=== PATIENT | male | born 1960 | race Two or more races ===

== ENCOUNTER 2024-02-17 13:35 | Emergency (ER) | payer OTHER ==
[~2024-02-17] VITALS: Ht 170.2 cm; Wt 96.2 kg
[2024-02-17] MEDS ORDERED: XANAX2 MG PO (13:49)
[2024-02-17] MEDS ORDERED: WELLBUTRIN SR100 MG PO (13:50)
[2024-02-17] MEDS ORDERED: IRBESARTAN75 MG PO (13:50)
[2024-02-17] MEDS ORDERED: XARELTO10 MG PO (13:50)
[2024-02-17] MEDS ORDERED: ZYLOPRIM100 M1 PO (13:50)
[2024-02-17] MEDS ORDERED: LIPITOR40 M1 PO (13:50)
[2024-02-17] MEDS ORDERED: TOPROL XL50 M1 (13:50)
[2024-02-17] MEDS ORDERED: CARVEDILOL12.5 MG (13:51)
[2024-02-17] MEDS ORDERED: NASAL MIST126 ML (13:51)
[2024-02-17] MEDS ORDERED: KETOROLAC TROMETHAMINE 30 MG VIAL IM STA (15:17)
== END 2024-02-17 16:28 | disposition home or self-care (01) ==
LOC: ER 13:36
DX: Z86.718 Personal history of other venous thrombosis and embolism (principal); M79.606 Pain in leg, unspecified; Z88.5 Allergy status to narcotic agent
CPT/HCPCS: 96372; 99282; J1885